=== PATIENT | male | born 1975 | race Caucasian/White ===

== ENCOUNTER 2019-07-31 08:47 | Emergency (ER) | payer BC ==
--- NOTE | 2019-07-31 09:01 | EDM.PDOC ---
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 States just today he walked an excessive amount questionable 10 miles. States he. has been feeling fine overall has no other medical complaints This morning he states he just didn't feel right felt kind of funny all over with some lightheadedness when he noticed the palpitations. Duration: Hour(s): Improves with: Reports: None Worsens with: Reports: None Associated Symptoms: Reports: No Other Symptoms, Other (Patient has no chest pain whatsoever) - Related Data Allergies Allergy/AdvReac Type Severity Reaction Status Date / Time No Known Allergies Allergy Verified 07/31/19 09:03 Home Meds: Home Meds diazePAM [Diazepam] 2 mg BID PRN 09/09/16 [History] valACYclovir HCl [Valacyclovir] 1,000 mg BID PRN 09/09/16 [History] Past Medical History Psychiatric History: Reports: Anxiety, Depression - Past Surgical History GI Surgical History: Reports: Appendectomy ED ROS GENERAL - Review of Systems Review Of Systems: See Below Constitutional: Reports: No Symptoms. Denies: Fever, Chills, Malaise, Weakness , Fatigue HEENT: Reports: No Symptoms Respiratory: Reports: No Symptoms. Denies: Shortness of Breath, Wheezing, Pleuritic Chest Pain, Cough Cardiovascular: Reports: Lightheadedness, Palpitations. Denies: Chest Pain, Blood Pressure Problem, Claudication, Dyspnea on Exertion, Edema, Orthopnea, Syncope Endocrine: Reports: No Symptoms GI/Abdominal: Reports: No Symptoms : Reports: No Symptoms Musculoskeletal: Reports: No Symptoms Skin: Reports: No Symptoms Neurological: Reports: No Symptoms Psychiatric: Reports: No Symptoms Hematologic/Lymphatic: Reports: No Symptoms Immunologic: Reports: No Symptoms ED EXAM, GENERAL - Physical Exam Exam Limited By: No Limitations General Appearance: Alert, WD/WN, No Apparent Distress Eye Exam: Bilateral Eye: EOMI, PERRL Ears: Normal External Exam, Hearing Grossly Normal Nose: Normal Inspection, Normal Mucosa, No Blood Throat/Mouth: Normal Inspection, Normal Lips, Normal Teeth, Normal Gums, Normal Oropharynx, Normal Voice, No Airway Compromise Head: Atraumatic, Normocephalic, Other Neck: Normal Inspection, Supple, Non-Tender, Full Range of Motion Respiratory/Chest: No Respiratory Distress, Lungs Clear, Normal Breath Sounds, No Accessory Muscle Use, Chest Non-Tender Cardiovascular: Normal Peripheral Pulses, No Edema, No Gallop, No JVD, No Murmur , No Rub. No: Regular Rate, Rhythm GI/Abdominal: Normal Bowel Sounds, Soft, Non-Tender, No Organomegaly, No Distention, Pelvis Stable Back Exam: Normal Inspection, Full Range of Motion Extremities: Normal Inspection, Normal Range of Motion, Non-Tender Neurological: Alert, Oriented, CN II-XII Intact, Normal Cognition, Normal Gait, Normal Reflexes, No Motor/Sensory Deficits Psychiatric: Normal Affect, Normal Mood Skin Exam: Warm, Dry, Intact, Normal Color, No Rash Course - Vital Signs Text/Narrative:: cbc bmp trop coags EKG CXR ASA Father and uncle has a history of arrhythmias questionable A. fib questionable SVT son states that both have been TX with meds and shocked multiple times spoke with DR Valerio says underlying AFIB ok with starting Cardizem drip and transfer to [facility] spoke with Dr Key hospitalist will accept transfer care turned over to Unruly at 1000 Last Recorded V/S: Last Vital Signs Temp 35.5 C 07/31/19 08:47 Pulse 178 H 07/31/19 09:27 Resp 20 07/31/19 08:47 BP 116/73 07/31/19 09:27 Pulse Ox 96 07/31/19 08:47 - Orders/Labs/Meds Orders: Active Orders 24 hr Category Date Time Status EKG 12 Lead [EKG Documentation Completion] [RC] STAT Care 07/31/19 08:50 Active Diltiazem 125 MG in NS Adv @ 5 MG/HR(125ml) Med 07/31/19 10:00 Ordered Diltiazem 125 mg Sodium Chloride 0.9% [Normal Saline] 100 ml IV TITRATE Sodium Chloride 0.9% [Saline Flush] Med 07/31/19 09:19 Active 10 ml FLUSH ASDIRECTED PRN Saline Lock Insert [OM.PC] Routine Oth 07/31/19 09:19 Ordered Medication Orders Diltiazem HCl 125 mg/ Sodium (Chloride) 125 mls @ 5 mls/hr IV TITRATE STEPHANIE; Protocol Sodium Chloride (Saline Flush) 10 ml FLUSH ASDIRECTED PRN PRN Reason: Keep Vein Open Labs: Laboratory Tests 07/31/19 07/31/19 07/31/19 Range/Units 08:55 08:55 08:55 WBC 6.3 (4.0-10.0) x10^3/uL RBC 4.73 (4.5-6.0) x10^6/uL Hgb 14.8 (14.0-18.0) g/dL Hct 44.4 (40.0-52.0) % MCV 93.9 H (78.0-93.0) fL MCH 31.3 (26.0-32.0) pg MCHC 33.3 (32.0-36.0) g/dL RDW Coeff of Kailey 13.0 (10.0-15.0) % Plt Count 233 (130-400) x10^3/uL Neut % (Auto) 58.6 (50.0-80.0) % Lymph % (Auto) 23.3 L (25.0-50.0) % [place] % (Auto) 15.9 H (2.0-11.0) % Eos % (Auto) 1.7 (0.0-4.0) % Baso % (Auto) 0.5 (0.2-1.2) % PT 10.4 (10.0-12.8) SEC INR 0.9 L (2.0-3.5) Troponin I < 0.017 (<=0.056) ng/mL Meds: Medications Generic Name Dose Route Start Last Admin Trade Name Freq PRN Reason Stop Dose Admin Diltiazem HCl 125 mg/ Sodium 125 mls @ 5 mls/hr 07/31/19 10:00 Chloride IV TITRATE STEPHANIE Protocol 5 MG/HR Sodium Chloride 10 ml 07/31/19 09:19 Saline Flush FLUSH ASDIRECTED PRN Keep Vein Open Discontinued Medications Generic Name Dose Route Start Last Admin Trade Name Freq PRN Reason Stop Dose Admin Aspirin 324 mg 07/31/19 09:17 07/31/19 09:25 Aspirin PO 07/31/19 09:18 324 mg ONETIME ONE Administration Diltiazem HCl Confirm 07/31/19 10:03 Diltiazem Administered 07/31/19 10:04 Dose 125 mg .ROUTE .STK-MED ONE Departure - Departure Time of Disposition: 09:55 Disposition: DC/Tfer to Acute Hospital 02 Condition: Good Clinical Impression: Afib Referrals: Froilan Dominguez PA-C [Primary Care Provider] - Forms: ED Department Discharge, Interfacility Transfer EMTALA - Problem List & Annotations (1) Afib SNOMED Code(s): 82208516 Code(s): I48.91 - UNSPECIFIED ATRIAL FIBRILLATION Status: Acute Current Visit: Yes - My Orders Last 24 Hours: My Active Orders 07/31/19 08:50 EKG 12 Lead [EKG Documentation Completion] [RC] STAT 07/31/19 09:19 Sodium Chloride 0.9% [Saline Flush] 10 ml FLUSH ASDIRECTED PRN Saline Lock Insert [OM.PC] Routine 07/31/19 10:00 Diltiazem 125 MG in NS Adv @ 5 MG/HR(125ml) Diltiazem 125 mg Sodium Chloride 0.9% [Normal Saline] 100 ml IV TITRATE - Assessment/Plan Last 24 Hours: My Active Orders 07/31/19 08:50 EKG 12 Lead [EKG Documentation Completion] [RC] STAT 07/31/19 09:19 Sodium Chloride 0.9% [Saline Flush] 10 ml FLUSH ASDIRECTED PRN Saline Lock Insert [OM.PC] Routine 07/31/19 10:00 Diltiazem 125 MG in NS Adv @ 5 MG/HR(125ml) Diltiazem 125 mg Sodium Chloride 0.9% [Normal Saline] 100 ml IV TITRATE
[2019-07-31] MEDS ORDERED: Aspirin 81 MG Tab.Chew PO ONE (09:17)
[2019-07-31] MEDS ORDERED: Sodium Chloride 0.9% 10 ML Syringe FLUSH PRN (09:19)
--- NOTE | 2019-07-31 09:38 | CR ---
[id number] RAD/RAD Chest PA or AP 1V EXAM: SINGLE VIEW CHEST. INDICATION: PALPITATIONS COMPARISON: CORRELATION IS MADE WITH THE EXAM OF MARCH 08, 2008 FINDINGS: The lungs are clear The cardiomediastinal contour is stable IMPRESSION: NO ACUTE PROCESS Keny Forbes MD 07/31/19 0935 Thank you for allowing us to participate in the care of your patient.
[2019-07-31] MEDS ORDERED: Diltiazem 125 MG in Sodium Chloride 0.9% 100 ML IV SCH (10:00)
[2019-07-31] MEDS ORDERED: Diltiazem 125 MG/25 ML SDV ONE (10:03)
[2019-07-31 10:59] VITALS: BP 91/66; PULSE 166
== END 2019-07-31 11:05 | disposition short-term general hospital (02) ==
LOC: VM.ED 08:47
DX: I48.91 Unspecified atrial fibrillation (principal); F41.9 Anxiety disorder, unspecified; F32.9 Major depressive disorder, single episode, unspecified; Z79.899 Other long term (current) drug therapy
CPT/HCPCS: 71045; 84484; 85025; 85610; 93005; 96365; 99285-25; A9270-GY; J3490; J7050

== ENCOUNTER 2021-07-02 11:53 | Emergency (ER) | payer BC ==
[2021-07-02] MEDS ORDERED: Sodium Chloride 0.9% 10 ML Syringe FLUSH PRN (12:15)
[2021-07-02] MEDS ORDERED: Ondansetron 4 MG/2 ML SDV IVPUSH ONE ×2 (12:16→15:00)
[2021-07-02] MEDS ORDERED: cefTRIAXone 1 GM Vial IVPUSH ONE (12:16)
[2021-07-02] MEDS ORDERED: Sodium Chloride 0.9% 1,000 ML IV ONE (12:16)
[2021-07-02] MEDS ORDERED: fentaNYL 100 MCG/2 ML SDV IVPUSH ONE ×2 (12:20→14:23)
--- NOTE | 2021-07-02 12:28 | EDM.PDOC ---
ED HPI GENERAL MEDICAL PROBLEM - General Chief Complaint: Abdominal Pain Stated Complaint: ABDOMINAL CRAMPING Time Seen by Provider: 07/02/21 12:14 Source of Information: Reports: Patient, Provider - History of Present Illness INITIAL COMMENTS - FREE TEXT/NARRATIVE: Yrn is a 46 y/o male who was seen at the [facility] this AM by Froilan CARDONA for abdominal pain. WBC at the clinic was 33,000 and he was sent to the ER. He first started to have abdominal pain Monday night after supper, but it had gotten progressively worse this AM. He is now in pain when he moves and is lying on the cart in pain. He has not eaten today. He did vomit yesterday. No BM since Monday. He is S/P Appy. Abdomen Pain Score (Numeric/FACES): 10 - Related Data Allergies Allergy/AdvReac Type Severity Reaction Status Date / Time No Known Allergies Allergy Verified 07/02/21 12:21 Home Meds: Home Meds Aspirin [Halfprin] 81 mg PO DAILY 10/22/19 [History] Desonide [Desowen] 15 gm TP ASDIRECTED PRN 10/22/19 [History] Metoprolol Tartrate [Lopressor] 50 mg PO Q12HR 10/22/19 [History] Omeprazole 20 mg PO DAILY 10/22/19 [History] Warfarin [Coumadin] 7.5 mg PO DAILY 10/22/19 [History] Warfarin [Coumadin] 10 mg PO DAILY 07/02/21 [History] Past Medical History Psychiatric History: Reports: Anxiety, Depression - Past Surgical History GI Surgical History: Reports: Appendectomy Review of Systems - Review of Systems Review Of Systems: See Below Constitutional: Reports: Diaphoresis, Fever, Weakness Eyes: Reports: No Symptoms Ears: Reports: No Symptoms Nose: Reports: No Symptoms Mouth/Throat: Reports: No Symptoms Respiratory: Reports: No Symptoms Cardiovascular: Reports: No Symptoms GI/Abdominal: Reports: Abdominal Pain, Constipation, Decreased Appetite, Nausea Genitourinary: Reports: No Symptoms Musculoskeletal: Reports: No Symptoms Skin: Reports: Diaphoresis Neurological: Reports: No Symptoms Psychiatric: Reports: No Symptoms ED EXAM, GENERAL - Physical Exam Exam: See Below General Appearance: Alert, WD/WN, No Apparent Distress (Adult male, lying on ER cart obviously in pain. Appears ill.) Ears: Normal External Exam, Hearing Grossly Normal Throat/Mouth: Normal Voice Head: Atraumatic, Normocephalic Neck: Normal Inspection Respiratory/Chest: No Respiratory Distress, Lungs Clear, Chest Non-Tender Cardiovascular: Normal Peripheral Pulses, Regular Rate, Rhythm, No Murmur GI/Abdominal: Distended, Guarding, Tender (RUQ), Abnormal Bowel Sounds (Male) Exam: Deferred Rectal (Males) Exam: Deferred Back Exam: Normal Inspection Extremities: Normal Inspection, Normal Range of Motion, No Pedal Edema, Normal Capillary Refill Neurological: Alert, Oriented, CN II-XII Intact, Normal Cognition, No Motor/Sensory Deficits Psychiatric: Normal Affect, Normal Mood Skin Exam: Warm, Dry, Intact, Normal Color Lymphatic: No Adenopathy Course - Vital Signs Text/Narrative:: 1214 The patient was seen by the ACCESSIONER. Labs and CT ordered. IV fluids started. Suspect Sepsis, Ceftriaxone 1gm IVP ordered along with Fentanyl 100mcg IVP and Zofran 4mg IVP. 1435 CT results reviewed, radiology advises Acute Cholecystitis with early perforation. Fentanyl 100mcg IVP given as pain returning. 1437 [facility] contacted, declined for no available beds. 1438 [facility] contacted, declined for no available beds. 1439 [facility] contacted, declined because patient presented too critical. 1445 [facility] contacted and patient accepted by the surgeon. Dr Desai will accept the patient to the ER. Patient and his advised and patient declines ambulance ride to [place] and wants to go POV. He was given another dose of Zofran 4mg IVP and Dilaudid 1mg IVP ordered prior to departure. Advised NPO for transfer. Pain improved and vitals stable for transfer. Last Recorded V/S: Last Vital Signs Temp 37.1 C 07/02/21 14:32 Pulse 128 H 07/02/21 14:32 Resp 24 H 07/02/21 14:32 BP 132/80 07/02/21 14:32 Pulse Ox 97 07/02/21 14:32 - Orders/Labs/Meds Orders: Active Orders 24 hr Category Date Time Status Nothing per Oral Now Diet [DIET] Diet 07/02/21 Dinner Ordered CULTURE BLOOD [BC] Stat Lab 07/02/21 12:25 Received CULTURE BLOOD [BC] Stat Lab 07/02/21 12:32 Results REFLEX LACTIC ACID YES OR NO [CHEM] Routine Lab 07/02/21 13:17 Received HYDROmorphone [Dilaudid] Med 07/02/21 15:00 Once 1 mg IVPUSH ONETIME ONE Ondansetron [Zofran] Med 07/02/21 15:00 Once 4 mg IVPUSH ONETIME ONE Sodium Chloride 0.9% [Normal Saline] 1,000 ml Med 07/02/21 14:30 Active IV ASDIRECTED Sodium Chloride 0.9% [Saline Flush] Med 07/02/21 12:15 Active 10 ml FLUSH ASDIRECTED PRN Blood Culture x2 Reflex Set [OM.PC] Stat Oth 07/02/21 12:15 Ordered Saline Lock Insert [OM.PC] Stat Oth 07/02/21 12:15 Ordered Medication Orders Hydromorphone HCl (Hydromorphone 1 Mg/Ml Syringe) 1 mg IVPUSH ONETIME ONE Stop: 07/02/21 15:01 Sodium Chloride (Normal Saline) 1,000 mls @ 150 mls/hr IV ASDIRECTED STEPHANIE Last Admin: 07/02/21 14:27 Dose: 150 mls/hr Documented by: AYANA Sodium Chloride (Sodium Chloride 0.9% 10 Ml Syringe) 10 ml FLUSH ASDIRECTED PRN PRN Reason: Keep Vein Open Labs: Laboratory Tests 07/02/21 07/02/21 07/02/21 Range/Units 12:32 12:32 12:32 WBC 30.3 H* (4.0-10.0) x10^3/uL RBC 4.87 (4.5-6.0) x10^6/uL Hgb 15.5 (14.0-18.0) g/dL Hct 44.1 (40.0-52.0) % MCV 90.6 (78.0-93.0) fL MCH 31.8 (26.0-32.0) pg MCHC 35.1 (32.0-36.0) g/dL RDW Coeff of Kailey 13.2 (10.0-15.0) % Plt Count 277 (130-400) x10^3/uL Add Manual Diff Yes Neutrophils % (Manual) 76 (50-80) % Band Neutrophils % 6 (0-6) % Lymphocytes % (Manual) 1 L (25-50) % Reactive Lymphs % 4 H (0) % Monocytes % (Manual) 13 H (2-11) % Absolute Neutrophils 24.8 H (1.8-7.7) x10^3/uL Lymphocytes # (Manual) 1.5 (1.0-4.8) x10^3/uL Monocytes # (Manual) 3.9 H (0.0-0.8) x10^3/uL Vacuolated Monocytes 1+ slight H Toxic Granulation 1+ slight H Platelet Estimate Adequate Polychromasia Rare Sodium 131 L (136-145) mmol/L Potassium 4.0 (3.5-5.1) mmol/L Chloride 94 L (98-107) mmol/L Carbon Dioxide 24 (21-32) mmol/L Anion Gap 17.0 H (5-15) mmol/L BUN 15 (7-18) mg/dL Creatinine 1.2 (0.70-1.30) mg/dL Est Cr Clr Drug Dosing TNP Estimated GFR (MDRD) > 60 Glucose 127 H (70-99) mg/dL Lactic Acid 2.3 H* (0.4-2.0) mmol/L Calcium 9.3 (8.5-10.1) mg/dL Corrected Calcium 9.5 (8.5-10.1) mg/dL Magnesium 1.7 L (1.8-2.4) mg/dL Total Bilirubin 2.3 H (0.2-1.0) mg/dL AST 31 (15-37) U/L ALT 34 (16-63) U/L Alkaline Phosphatase 73 (46-116) U/L C-Reactive Protein 31.8 H (<=0.9) mg/dL Total Protein 8.1 (6.4-8.2) g/dL Albumin 3.8 (3.4-5.0) g/dL Globulin 4.3 Albumin/Globulin Ratio 0.88 Amylase 22 L (25-115) U/L Lipase 35 L (73-393) U/L Procalcitonin (0.1-0.50) ng/mL Urine Color (YELLOW) Urine Appearance (CLEAR) Urine pH (5.0-8.0) Ur Specific [place] Urine Protein (NEGATIVE) mg/dL Urine Glucose (UA) (NEGATIVE) mg/dL Urine Ketones (NEGATIVE) mg/dL Urine Occult Blood (NEGATIVE) Urine Nitrite (NEGATIVE) Urine Bilirubin (NEGATIVE) Urine Urobilinogen (0.2) EU/dL Ur Leukocyte Esterase (NEGATIVE) Urine RBC (NOT SEEN) /HPF Urine WBC (NOT SEEN) /HPF Ur Squamous Epith Cells (NOT SEEN) /HPF Urine Bacteria (NOT SEEN) /HPF Urine Mucus (NOT SEEN) /LPF SARS CoV-2 RNA Rapid PHILIP (NEGATIVE) 07/02/21 07/02/21 07/02/21 Range/Units 12:32 14:19 14:34 WBC (4.0-10.0) x10^3/uL RBC (4.5-6.0) x10^6/uL Hgb (14.0-18.0) g/dL Hct (40.0-52.0) % MCV (78.0-93.0) fL MCH (26.0-32.0) pg MCHC (32.0-36.0) g/dL RDW Coeff of Kailey (10.0-15.0) % Plt Count (130-400) x10^3/uL Add Manual Diff Neutrophils % (Manual) (50-80) % Band Neutrophils % (0-6) % Lymphocytes % (Manual) (25-50) % Reactive Lymphs % (0) % Monocytes % (Manual) (2-11) % Absolute Neutrophils (1.8-7.7) x10^3/uL Lymphocytes # (Manual) (1.0-4.8) x10^3/uL Monocytes # (Manual) (0.0-0.8) x10^3/uL Vacuolated Monocytes Toxic Granulation Platelet Estimate Polychromasia Sodium (136-145) mmol/L Potassium (3.5-5.1) mmol/L Chloride (98-107) mmol/L Carbon Dioxide (21-32) mmol/L Anion Gap (5-15) mmol/L BUN (7-18) mg/dL Creatinine (0.70-1.30) mg/dL Est Cr Clr Drug Dosing Estimated GFR (MDRD) Glucose (70-99) mg/dL Lactic Acid (0.4-2.0) mmol/L Calcium (8.5-10.1) mg/dL Corrected Calcium (8.5-10.1) mg/dL Magnesium (1.8-2.4) mg/dL Total Bilirubin (0.2-1.0) mg/dL AST (15-37) U/L ALT (16-63) U/L Alkaline Phosphatase (46-116) U/L C-Reactive Protein (<=0.9) mg/dL Total Protein (6.4-8.2) g/dL Albumin (3.4-5.0) g/dL Globulin Albumin/Globulin Ratio Amylase (25-115) U/L Lipase (73-393) U/L Procalcitonin 3.77 H (0.1-0.50) ng/mL Urine Color Dark yellow H (YELLOW) Urine Appearance Slightly cloudy H (CLEAR) Urine pH 6.0 (5.0-8.0) Ur Specific [place] 1.025 Urine Protein 30 H (NEGATIVE) mg/dL Urine Glucose (UA) Negative (NEGATIVE) mg/dL Urine Ketones Negative (NEGATIVE) mg/dL Urine Occult Blood Trace-lysed H (NEGATIVE) Urine Nitrite Negative (NEGATIVE) Urine Bilirubin Negative (NEGATIVE) Urine Urobilinogen 0.2 (0.2) EU/dL Ur Leukocyte Esterase Negative (NEGATIVE) Urine RBC 0-5 (NOT SEEN) /HPF Urine WBC 0-5 (NOT SEEN) /HPF Ur Squamous Epith Cells Rare (NOT SEEN) /HPF Urine Bacteria Not seen (NOT SEEN) /HPF Urine Mucus Not seen (NOT SEEN) /LPF SARS CoV-2 RNA Rapid PHILIP Negative (NEGATIVE) Meds: Medications Generic Name Dose Route Start Last Admin Trade Name [place] PRN Reason Stop Dose Admin Hydromorphone HCl 1 mg 07/02/21 15:00 Hydromorphone 1 Mg/Ml Syringe IVPUSH 07/02/21 15:01 ONETIME ONE Sodium Chloride 1,000 mls @ 150 mls/hr 07/02/21 14:30 07/02/21 14:27 Normal Saline IV 150 mls/hr ASDIRECTED STEPHANIE Administration Sodium Chloride 10 ml 07/02/21 12:15 Sodium Chloride 0.9% 10 Ml Syringe FLUSH ASDIRECTED PRN Keep Vein Open Discontinued Medications Generic Name Dose Route Start Last Admin Trade Name Maude PRN Reason Stop Dose Admin Ceftriaxone Sodium 1 gm 07/02/21 12:16 07/02/21 12:34 Ceftriaxone 1 Gm Vial IVPUSH 07/02/21 12:17 1 gm STAT ONE Administration Fentanyl 100 mcg 07/02/21 12:20 07/02/21 12:30 Fentanyl 100 Mcg/2 Ml Sdv IVPUSH 07/02/21 12:21 100 mcg ONETIME ONE Administration Fentanyl 100 mcg 07/02/21 14:23 07/02/21 14:29 Fentanyl 100 Mcg/2 Ml Sdv IVPUSH 07/02/21 14:24 100 mcg ONETIME ONE Administration Sodium Chloride 1,000 mls @ 999 mls/hr 07/02/21 12:16 07/02/21 12:28 Normal Saline IV 07/02/21 13:16 999 mls/hr ONETIME ONE Administration Iopamidol 100 ml 07/02/21 14:08 07/02/21 14:08 Iopamidol 612 Mg/Ml 100 Ml Bottle IVPUSH 07/02/21 14:09 100 ml ONETIME ONE Administration Ondansetron HCl 4 mg 07/02/21 12:16 07/02/21 12:28 Ondansetron 4 Mg/2 Ml Sdv IVPUSH 07/02/21 12:17 4 mg ONETIME ONE Administration - Radiology Interpretation Free Text/Narrative:: XR Chest 1V=no acute findings CT Abd/Pelvis W=Acute Cholecystitis (See final report) Radiology called ACCESSIONER and advised early perforation of GB. Departure - Departure Time of Disposition: 14:50 Disposition: DC/Tfer to [facility] 02 Condition: Good Clinical Impression: Cholecystitis with perforation of gallbladder - Discharge Information Referrals: Froilan Dominguez PA-C [Primary Care Provider] - Forms: ED Department Discharge, Interfacility Transfer EMTALA Additional Instructions: -Transfer to [facility] to ER for Dr Desai. Patient desires to go by POV. Sepsis Event Note (ED) - Focused Exam Vital Signs: Vital Signs Temp Pulse Resp BP Pulse Ox 07/02/21 14:32 37.1 C 128 H 24 H 132/80 97 07/02/21 12:15 129 H 24 H 132/95 H 93 L 07/02/21 11:55 38.2 C H 139 H 24 H 132/106 H 90 L - Problem List & Annotations (1) Perforation of gallbladder in cholecystitis SNOMED Code(s): 89338000, [id number] Code(s): K82.A2 - PERFORATION OF GALLBLADDER IN CHOLECYSTITIS Status: Acute Current Visit: Yes Annotation/Comment:: CT confirmed Cholecystitis WBC=30.3, Lactic Acid=2.2, Ceftriaxone and IV fluids given in VC. BP stable, Tachycardia noted, but hx of A Fib. Transfer for Surgeon Consult. - Problem List Review Problem List Initiated/Reviewed/Updated: Yes - My Orders Last 24 Hours: My Active Orders 07/02/21 12:15 Sodium Chloride 0.9% [Saline Flush] 10 ml FLUSH ASDIRECTED PRN Blood Culture x2 Reflex Set [OM.PC] Stat Saline Lock Insert [OM.PC] Stat 07/02/21 12:25 CULTURE BLOOD [BC] Stat 07/02/21 12:32 CULTURE BLOOD [BC] Stat 07/02/21 13:17 REFLEX LACTIC ACID YES OR NO [CHEM] Routine 07/02/21 14:30 Sodium Chloride 0.9% [Normal Saline] 1,000 ml IV ASDIRECTED 07/02/21 15:00 HYDROmorphone [Dilaudid] 1 mg IVPUSH ONETIME ONE Ondansetron [Zofran] 4 mg IVPUSH ONETIME ONE 07/02/21 Dinner Nothing per Oral Now Diet [DIET] - Assessment/Plan Last 24 Hours: My Active Orders 07/02/21 12:15 Sodium Chloride 0.9% [Saline Flush] 10 ml FLUSH ASDIRECTED PRN Blood Culture x2 Reflex Set [OM.PC] Stat Saline Lock Insert [OM.PC] Stat 07/02/21 12:25 CULTURE BLOOD [BC] Stat 07/02/21 12:32 CULTURE BLOOD [BC] Stat 07/02/21 13:17 REFLEX LACTIC ACID YES OR NO [CHEM] Routine 07/02/21 14:30 Sodium Chloride 0.9% [Normal Saline] 1,000 ml IV ASDIRECTED 07/02/21 15:00 HYDROmorphone [Dilaudid] 1 mg IVPUSH ONETIME ONE Ondansetron [Zofran] 4 mg IVPUSH ONETIME ONE 07/02/21 Dinner Nothing per Oral Now Diet [DIET] Plan: See above
[2021-07-02 13:10] LABS: CHLORIDE,CL 94 mmol/L (98-107); SODIUM,NA 131 mmol/L (136-145)
[2021-07-02] MEDS ORDERED: Iopamidol 612 MG/ML 100 ML Bottle IVPUSH ONE (14:08)
[2021-07-02] MEDS ORDERED: Sodium Chloride 0.9% 1,000 ML IV SCH (14:30)
[2021-07-02 14:33] VITALS: BP 132/80; PULSE 128
--- NOTE | 2021-07-02 14:37 | CT ---
[id number] CT/CT Abdomen Pelvis W IV EXAM: CT Abdomen Pelvis W IV CLINICAL DATA: PAIN ELEVATED WHITE BLOOD CELL COUNT COMPARISON: No previous similar exam is available. FINDINGS: There are bibasilar pulmonary parenchymal infiltrates with atelectasis. The gallbladder is distended There is thickening of the gallbladder wall There is edema surrounding the gallbladder Edema also involves the adjacent hepatic flexure of the large bowel Inflammatory changes also involve the duodenal C-loop. There is free fluid in the abdomen and pelvis. There is no free air. The liver and spleen, kidneys, adrenals, pancreas, and aorta are unremarkable The pelvis shows no mass or adenopathy. IMPRESSION: PROBABLE ACUTE CHOLECYSTITIS. SURGICAL CONSULTATION SUGGESTED. REPORT CALLED AT TIME OF DICTATION Keny Forbes MD 07/02/21 0819 Thank you for allowing us to participate in the care of your patient.
--- NOTE | 2021-07-02 14:54 | CR ---
[id number] RAD/RAD Chest PA or AP 1V EXAM: RAD Chest PA or AP 1V INDICATION: LUNGS APPEARANCE ON CT ABDOMEN/PELVIS. COMPARISON: July 31, 2019. DISCUSSION: Median sternotomy wires. Cardiomediastinal silhouette is stable in size and contour. No infiltrate, effusion, pneumothorax, or edema. Bibasilar subsegmental atelectasis and or scarring. IMPRESSION: No acute cardiopulmonary abnormality. Pablo Flores DO 07/02/21 1379 Thank you for allowing us to participate in the care of your patient.
[2021-07-02] MEDS ORDERED: HYDROmorphone 1 MG/ML Syringe IVPUSH ONE (15:00)
== END 2021-07-02 15:23 | disposition short-term general hospital (02) ==
LOC: VM.ED 11:53
DX: K82.A2 Perforation of gallbladder in cholecystitis (principal); Z90.49 Acquired absence of other specified parts of digestive tract; Z20.822 Contact with and (suspected) exposure to COVID-19
CPT/HCPCS: 36415; 71045; 74177; 80053; 81001; 82150; 83605; 83690; 83735; 84145; 85025; 86140; 87040; 96374; 96375; 96376; 99284; 99285-25; J0696; J1170; J2405; J3010; J7030; Q9967; U0002

== ENCOUNTER 2022-10-14 06:28 | Day surgery (SDC) | payer BC ==
[2022-10-14] MEDS: Lactated Ringers 1,000 ML IV SCH (06:57)
[2022-10-14] MEDS ORDERED: fentaNYL 100 MCG/2 ML SDV ONE (08:11)
[2022-10-14] MEDS ORDERED: Propofol 200 MG/20 ML SDV ONE ×2 (08:11→08:23)
[2022-10-14 09:07] VITALS: BP 138/91; PULSE 96
== END 2022-10-14 11:08 | disposition home or self-care (01) ==
LOC: VM.SDS 06:28
PROVIDERS: ATTEND Student in an Organized Health Care Education/Training Program
DX: Z12.11 Encounter for screening for malignant neoplasm of colon (principal); K63.5 Polyp of colon; K63.3 Ulcer of intestine; D12.3 Benign neoplasm of transverse colon; K52.9 Noninfective gastroenteritis and colitis, unspecified; E78.1 Pure hyperglyceridemia; I48.91 Unspecified atrial fibrillation; I08.8 Other rheumatic multiple valve diseases; M54.50 Low back pain, unspecified; G89.29 Other chronic pain; R73.01 Impaired fasting glucose; Z98.890 Other specified postprocedural states; Z79.899 Other long term (current) drug therapy; Z79.01 Long term (current) use of anticoagulants; Z86.010 Personal history of colon polyps
CPT/HCPCS: 00811; J2704; J3010; J7120

== ENCOUNTER 2024-10-08 10:47 | Emergency (ER) | payer BC ==
[2024-10-08] MEDS ORDERED: Sodium Chloride 0.9% 10 ML Syringe FLUSH PRN (11:19)
[2024-10-08 11:31] LABS: HEMATOCRIT 43.3 % (40.0-52.0); MEAN CORPUSCULAR HEMOGLOBIN 31.8 pg (26.0-32.0); MEAN CORPUSCULAR HGB CONC 34.6 g/dL (32.0-36.0); MEAN CORPUSCULAR VOLUME 91.9 fL (78.0-93.0); RED BLOOD CELL COUNT 4.71 x10^6/uL (4.5-6.0); WHITE BLOOD CELL COUNT,WBC 8.9 x10^3/uL (4.0-10.0)
[2024-10-08 11:46] LABS: A/G RATIO 1.16; ALANINE AMINOTRANSFERASE,ALT 50 U/L (16-63); ALBUMIN 4.3 g/dL (3.4-5.0); ALKALINE PHOSPHATASE 77 U/L (46-116); ASPARTATE AMNIOTRANSFERASE,AST 26 U/L (15-37); BILIRUBIN TOTAL 0.5 mg/dL (0.2-1.0); BLOOD UREA NITROGEN,BUN 19 mg/dL (7-18); CALCIUM 9.3 mg/dL (8.5-10.1); CARBON DIOXIDE,CO2 29 mmol/L (21-32); CHLORIDE,CL 101 mmol/L (98-107); GLUCOSE RANDOM 114 mg/dL (70-99); POTASSIUM,K 4.3 mmol/L (3.5-5.1); SODIUM,NA 140 mmol/L (136-145)
[2024-10-08 11:55] LABS: ANION GAP 14.3 mmol/L (5-15); ESTIMATED GFR 91 mL/min (>=60)
[2024-10-08 12:00] LABS: APPEARANCE,URINE CLEAR (CLEAR); BILIRUBIN,URINE NEGATIVE (NEGATIVE); COLOR,URINE YELLOW (YELLOW); GLUCOSE,URINE NEGATIVE (NEGATIVE); KETONES,URINE NEGATIVE (NEGATIVE); LEUKOCYTE ESTERASE,URINE NEGATIVE (NEGATIVE); NITRITE,URINE NEGATIVE (NEGATIVE); OCCULT BLOOD,URINE NEGATIVE (NEGATIVE); PH,URINE 5.5 (5.0-8.0); PROTEIN,URINE NEGATIVE (NEGATIVE); UROBILINOGEN,URINE 0.2 EU/dL (0.2)
[2024-10-08] MEDS: Lactated Ringers 500 ML IV SCH (12:00)
[2024-10-08] MEDS: Ondansetron 4 MG/2 ML SDV IVPUSH ONE (12:00)
[2024-10-08] MEDS: HYDROmorphone 0.5 MG/0.5 ML Syringe IVPUSH ONE (12:02)
[2024-10-08 13:02] VITALS: BP 138/74; PULSE 72
== END 2024-10-08 12:55 | disposition home or self-care (01) ==
LOC: VM.ED 10:47
DX: R10.9 Unspecified abdominal pain (principal); R11.2 Nausea with vomiting, unspecified; I48.91 Unspecified atrial fibrillation; Z90.49 Acquired absence of other specified parts of digestive tract; Z79.82 Long term (current) use of aspirin; Z79.01 Long term (current) use of anticoagulants; Z79.899 Other long term (current) drug therapy
CPT/HCPCS: 36415; 74176; 80053; 81003; 85027; 96374; 96375; 99283; 99284-25; J2405; J7120